=== PATIENT | female | born 1950 | race Two or more races ===

== ENCOUNTER 2021-04-08 06:35 | Day surgery (SDC) | payer OTHER ==
[~2021-04-08 06:35] MED LIST: VASOTEC20 M1 PO
== END 2021-04-08 15:15 | disposition home or self-care (01) ==
LOC: CIR.AMB 06:35
PROVIDERS: ATTEND Surgery
DX: D05.01 Lobular carcinoma in situ of right breast (principal); C77.3 Secondary and unspecified malignant neoplasm of axilla and upper limb lymph nodes; Z20.822 Contact with and (suspected) exposure to COVID-19